=== PATIENT | male | born 1990 | race Caucasian/White ===

== ENCOUNTER → 2022-11-03 | Outpatient (CLI) | payer OTHER | LOC: M PLAIMG 09:04 | PROVIDERS: ATTEND Physician Assistant | DX: M54.2 Cervicalgia (principal); R20.2 Paresthesia of skin ==

== ENCOUNTER 2023-04-20 09:41 | Day surgery (SDC) | payer OTHER ==
[~2023-04-20] VITALS: Ht 182.9 cm; Wt 97.1 kg
[~2023-04-20 09:41] MED LIST: VALA1TAB5 PO
[2023-04-20] MEDS: NS 1,000 ML IV ONE (09:55)
[2023-04-20] MEDS ORDERED: propofoL 500 MG/50 ML VIAL As Ordered ONE (10:22)
[2023-04-20] MEDS ORDERED: fentaNYL 100 MCG/2 ML INJECTION As Ordered ONE (10:22)
[2023-04-20] MEDS ORDERED: LIDOCAINE 2% 100MG/5ML SDV (FOR ANES.) As Ordered ONE (10:22)
[2023-04-20] MEDS ORDERED: GLYCOPYRROLATE INJ 0.2 MG/ML 2 ML VIAL As Ordered ONE (10:24)
[2023-04-20 10:48] VITALS: TEMP 97.2
[2023-04-20 11:18] VITALS: BP 126/83; O2SAT 97
== END 2023-04-20 11:19 | disposition home or self-care (01) ==
LOC: M OPP 09:41
PROVIDERS: ATTEND Internal Medicine Gastroenterology
DX: K64.8 Other hemorrhoids (principal); R19.4 Change in bowel habit; K29.70 Gastritis, unspecified, without bleeding; R10.13 Epigastric pain; R14.0 Abdominal distension (gaseous); Z87.891 Personal history of nicotine dependence; G47.30 Sleep apnea, unspecified; Z79.899 Other long term (current) drug therapy
CPT/HCPCS: 43239; 45380; 45385; 88305; J3010

== ENCOUNTER → 2023-05-03 | Outpatient (CLI) | payer OTHER ==
[2023-05-03 10:21] LABS: IMMUNOGLOBULIN A 125.7 MG/DL (40-350)
[2023-05-03 10:22] LABS: FREE T4 1.2 NG/DL (0.89-1.76); THYROID STIMULATING HORMONE 1.859 uIU/ML (0.55-4.78)
== END ==
LOC: M LAB 09:05
PROVIDERS: ATTEND Physician Assistant Medical
DX: R19.8 Other specified symptoms and signs involving the digestive system and abdomen (principal)